=== PATIENT | male | born 1980 | race African-American/Black ===

== ENCOUNTER 2025-07-04 14:47 | Emergency (ER) | payer OTHER, SELFPAY ==
[2025-07-04] VITALS (11 sets, daily range): BP systolic 110–196; BP diastolic 67–138; PULSE 68–118; RESP 11–24; TEMP 36.8; O2SAT 96–100; BMI 39.9
--- NOTE | 2025-07-04 15:10 | RAD_ITS ---
PROCEDURE: TIBIA FIBULA 2 VIEWS 07/04/2025 REASON FOR EXAM: INJURY TECHNIQUE: Procedure Code: RADTF Modality: DX Procedure: TIBIA FIBULA 2 VIEWS Laterality: Right COMPARISON: None FINDINGS: Bones: Spiral fracture of the proximal fibular diaphysis with lateral displacement. Spiral fracture of the distal tibial diaphysis with mild lateral angulation and displacement of approximately 7 mm. Joints: Normal alignment at the knee and ankle. Soft tissues: Soft tissues are unremarkable. Other: No foreign body. RAD/Tibia & Fibula 2 Views IMPRESSION: Fractures of the fibula and tibia as above. Reading Location: [id number]
--- NOTE | 2025-07-04 15:46 | ED.VIS.FALL ---
HPI HPI - Fall History of Present Illness Chief Complaint: Fall Informant: patient and EMS Narrative Narrative: Patient is a 44-year-old male with no significant PMHx presenting to the ED with a leg injury sustained from a fall. - Reports slipping while stepping out of a truck, resulting in a fall where his leg was twisted, fell onto back. [place] multiple popping sounds in his leg during the fall; denies back pain. - Describes the fall as rapid and uncontrollable, stating, I couldn't stop it, it was just like so fast. - Upon lifting his leg, he suspected it was broken. - Denies numbness except for a sensation where ice was applied. - Last oral intake was a [employer] a few hours ago; prior to that, ate around [id number]. - Recently started working at [employer]; planning to return to law enforcement. [facility] Medical History (Updated 07/04/25 @ 15:[address] Pito Urias MD) Tibia fracture Medical History no medical history no medical history Home Medications ?Medication ?Instructions ?Recorded ?Last Taken ?Type oxycodone-acetaminophen 5 mg-325 1 tab PO Q4H PRN PRN Pain 3 days 07/04/25 Unknown Rx mg tablet #15 TABLETS Allergy/AdvReac Type Severity Reaction Status Date / Time No Known Allergies Allergy Verified 07/04/25 14:50 Social History Smoking Status: Current every day smoker tobacco type: e-cigarettes ROS ROS ED Constitutional Constitutional ED: Denies chills or fever(s) Eyes Eyes: Denies change in vision Cardiovascular Cardiovascular: Denies chest pain Gastrointestinal Gastrointestinal: Denies abdominal pain Musculoskeletal Musculoskeletal: Reports extremity pain; Denies back pain or neck pain Integumentary Denies Abrasions, rash or wounds Neurologic Neurologic: Denies headache(s), paresthesias or weakness EXAM Physical Exam Const Vital Signs: 07/04/25 14:48 07/04/25 15:42 07/04/25 16:13 Temperature 98.2 F Temperature Source Oral Pulse Rate 118 H 73 Pulse Rate [1 (Initial Baseline)] Pulse Rate [2] Pulse Rate [3] Respiratory Rate 16 Respiratory Rate [1 (Initial Baseline)] Respiratory Rate [2] Respiratory Rate [3] Respiratory Effort Normal Non-Labored Respiratory Depth Normal Respiratory Pattern Normal Blood Pressure 110/99 H 136/80 H Blood Pressure [1 (Initial Baseline)] Blood Pressure [3] Blood Pressure Mean 102 98 Baseline BP Pulse Ox 100 Oxygen Delivery Method Room Air Room Air Oxygen Delivery Method [1 (Initial Baseline)] Oxygen Delivery Method [2] Oxygen Delivery Method [3] Oxygen Flow Rate (L/min) Oxygen Flow Rate (L/min) [2] Oxygen Flow Rate (L/min) [3] EtCo2 - Document during CPR and with ROSC EtCo2 - Document during CPR and with ROSC [1 (Initial Baseline)] EtCo2 - Document during CPR and with ROSC [2] EtCo2 - Document during CPR and with ROSC [3] 07/04/25 16:30 07/04/25 16:30 07/04/25 16:31 Temperature Temperature Source Pulse Rate 69 Pulse Rate [1 (Initial Baseline)] Pulse Rate [2] Pulse Rate [3] Respiratory Rate 16 Respiratory Rate [1 (Initial Baseline)] Respiratory Rate [2] Respiratory Rate [3] Respiratory Effort Respiratory Depth Respiratory Pattern Blood Pressure 136/80 H Blood Pressure [1 (Initial Baseline)] Blood Pressure [3] Blood Pressure Mean Baseline BP 136/80 Pulse Ox 100 100 Oxygen Delivery Method Room Air Room Air Oxygen Delivery Method [1 (Initial Baseline)] Oxygen Delivery Method [2] Oxygen Delivery Method [3] Oxygen Flow Rate (L/min) Oxygen Flow Rate (L/min) [2] Oxygen Flow Rate (L/min) [3] EtCo2 - Document during CPR and with ROSC 39 EtCo2 - Document during CPR and with ROSC [1 (Initial Baseline)] EtCo2 - Document during CPR and with ROSC [2] EtCo2 - Document during CPR and with ROSC [3] 07/04/25 16:35 07/04/25 16:51 07/04/25 16:56 Temperature Temperature Source Pulse Rate 69 70 Pulse Rate [1 (Initial Baseline)] 72 Pulse Rate [2] 84 Pulse Rate [3] 90 Respiratory Rate 11 L 16 Respiratory Rate [1 (Initial Baseline)] 16 Respiratory Rate [2] 17 Respiratory Rate [3] 24 H Respiratory Effort Respiratory Depth Respiratory Pattern Blood Pressure 171/83 H 178/108 H Blood Pressure [1 (Initial Baseline)] 136/67 H Blood Pressure [3] 196/69 H Blood Pressure Mean Baseline BP Pulse Ox 100 100 Oxygen Delivery Method Nasal Cannula Nasal Cannula Oxygen Delivery Method [1 (Initial Baseline)] Nasal Cannula Oxygen Delivery Method [2] Nasal Cannula Oxygen Delivery Method [3] Nasal Cannula Oxygen Flow Rate (L/min) 2 Oxygen Flow Rate (L/min) [2] 2 Oxygen Flow Rate (L/min) [3] 2 EtCo2 - Document during CPR and with ROSC 45 37 EtCo2 - Document during CPR and with ROSC [1 (Initial Baseline)] 36 EtCo2 - Document during CPR and with ROSC [2] 39 EtCo2 - Document during CPR and with ROSC [3] 39 07/04/25 17:00 07/04/25 17:01 Temperature Temperature Source Pulse Rate 72 78 Pulse Rate [1 (Initial Baseline)] Pulse Rate [2] Pulse Rate [3] Respiratory Rate 14 16 Respiratory Rate [1 (Initial Baseline)] Respiratory Rate [2] Respiratory Rate [3] Respiratory Effort Respiratory Depth Respiratory Pattern Blood Pressure 178/108 H 178/138 H Blood Pressure [1 (Initial Baseline)] Blood Pressure [3] Blood Pressure Mean 131 Baseline BP Pulse Ox 100 100 Oxygen Delivery Method Room Air Oxygen Delivery Method [1 (Initial Baseline)] Oxygen Delivery Method [2] Oxygen Delivery Method [3] Oxygen Flow Rate (L/min) Oxygen Flow Rate (L/min) [2] Oxygen Flow Rate (L/min) [3] EtCo2 - Document during CPR and with ROSC 36 EtCo2 - Document during CPR and with ROSC [1 (Initial Baseline)] EtCo2 - Document during CPR and with ROSC [2] EtCo2 - Document during CPR and with ROSC [3] Positive well nourished and well developed General Appearance ED: well developed and NAD HEENT Reports normocephalic atraumatic Eyes PERRL and EOMs intact bilaterally Neck full ROM and supple Chest Wall inspection of chest normal and palpation of chest normal Resp normal respiratory effort and clear to auscultation bilaterally Cardio regular rate, regular rhythm and no murmurs Rate: tachycardic GI non-tender and non-distended Palpation: soft Back/Spine normal ROM and normal to inspection Extremity Extremity Narrative: Deformity distal right lower leg. There is mild tenting but it appears to be over a relatively large area as opposed to a sharp peak. The skin is intact. The foot is in external rotation compared with the knee. Tenderness at the lateral aspect of the proximal lower leg as well but not at the knee or the thigh. There is a 2+/4 dorsalis pedis pulse on the right. Left lower extremity and both upper extremities move fully without limitation or pain. Neuro oriented x3, no focal motor deficits and no sensory deficits noted Sensorium / Orientation: alert Psych mental status grossly normal and thought process normal Skin no wounds Rashes: no rashes MDM MDM MDM Narrative Medical decision making narrative: A two-view x-ray series of the right tibia and fibula shows displaced fractures of the distal tibial shaft, proximal to the malleoli, and the proximal fibular shaft, distal to the fibular head. This finding is consistent with the patient?s deformity and pain. After informed written consent was obtained, the patient was sedated, the fracture was reduced, and he was splinted (see the procedure note). I discussed the plan with Dr. Naylor, who agreed that the patient will require outpatient management. It will be arranged for the patient to be admitted in a couple of days or early next week as an outpatient, if he wishes to follow up in the office before the weekend. We provided the patient with crutches and advised that he remain [id number]. He was able to ambulate with the crutches, and his pain is relatively controlled. He was offered admission but prefers to continue as an outpatient. Therefore, he was given [id number] instructions for the right lower extremity, reasons to return, and a prescription for analgesics. He was also given appropriate work restrictions, as this is a work-related injury. Radiography Diagnostic Testing: Clinical Impression(s) from Imaging Studies Tibia/Fibula X-Ray 07/04/25 15:10 IMPRESSION: Fractures of the fibula and tibia as above. Reading Location: [facility] Tibia/Fibula X-Ray 07/04/25 17:12 IMPRESSION: Displaced fractures of the tibial and fibular shafts, as described above. Reading Location: [id number] Management Discussion w/another healthcare provider: Public Relations Consultant (Martin Naylor) Procedures Lower Extremity Splints Lower Extremity Splint: Orthoglass (Long-leg posterior with sugar-tong; neurovascularly intact distally after placement tolerated well no complications under sedation after written consent) Splint Fabrication: Fabricated Location: Right Procedural Sedation 1 (Initial Baseline): Consent Signed: Yes Any Problems With Anesthesia: No Sedation medication: Etomidate Dose: 10 Route: IV Total Moderate Sedation Units: 9 Maliampati Score: Class II ASA Classification: I Comment:: On monitor with prophylactic nasal cannula oxygenation and IV fluids, end-tidal CO2 monitoring, airway equipment at the bedside. Tolerated well with no complications. Other Procedures Procedure(s): Close reduction right lower leg displaced fractures: After informed consent and timeout, patient was sedated and the foot was manually distracted while internally rotated for reduction of the distal tibia shaft fracture. Deformity resolved, neurovascular intact distally after reduction, and splinted see above. Discharge Plan Triage Chief Complaint: Fall ED Provider: Pito Urias Dx/Rx/DC Orders Clinical Impression: Traumatic closed displaced fracture of shaft of right tibia and fibula, Fall due to slipping on ice or snow Instructions: Using Crutches: [id number], ED Leg Fracture, ED Fiberglass Splint Care Prescriptions: New oxycodone-acetaminophen 5-325 mg tablet 1 tab PO Q4H PRN PRN (Reason: Pain) 3 Days Qty: 15 0RF Stand Alone Forms: Work Status Form Primary Care Provider: [facility],[place] Referrals: Manoj Naylor MD [Med Staff - Active Staff, Orthopedics] - As soon as possible Print Language: Italian Disposition Disposition: Home, Self Care
--- NOTE | 2025-07-04 15:51 | CON.PCM.OR_ITS ---
HPI Consult Data Date of Consult: 07/04/25 HPI Narrative HPI Narrative: KILO DYSON, is a 44 M who presents with a tib fib fracture, twisted on ice. [facility] Medical History (Updated 07/04/25 @ 15:52 by Manoj Naylor MD) Tibia fracture Allergy/AdvReac Type Severity Reaction Status Date / Time No Known Allergies Allergy Verified 07/04/25 14:50 Vital Signs Vital Signs Vital Signs: 07/04/25 14:48 07/04/25 15:42 Temperature 98.2 F Temperature Source Oral Pulse Rate 118 H Respiratory Rate 16 Respiratory Effort Normal Non-Labored Respiratory Depth Normal Respiratory Pattern Normal Blood Pressure 110/99 H Blood Pressure Mean 102 Pulse Ox 100 Oxygen Delivery Method Room Air Room Air Weight Weight: 311 lb 4.683 oz Body Mass Index (BMI) 39.9 Imaging Radiology Impression Tibia/Fibula X-Ray 07/04/25 15:10 IMPRESSION: Fractures of the fibula and tibia as above. Reading Location: [id number] Assessment & Plan Assessment/Plan (1) Tibia fracture: PLAN: 44 M with tib fib fracture, extra articular. no signs of CS per Dr Rory SHELTON to splint and make NWB. Prefer for him to be admitted and fix with IM delmis in next few days as able per OR, but also fine if he would rather get splinted and FU on Wednesday to arrange surgery next week.
[2025-07-04] MEDS: fentaNYL 100 MCG/2 ML Ampul 50 MCG IV (16:05)
[2025-07-04] MEDS: 0.9% Normal Saline (1000mL) 1,000 ML 200 ML IV (16:06)
--- NOTE | 2025-07-04 16:53 | ED.RN ---
For workers comp, pt. is required to have a drug test. There is no one tongue binder that can come to the ER at this time. Pt. will have to f/u with [facility] to get the testing
--- NOTE | 2025-07-04 17:12 | RAD_ITS ---
PROCEDURE: RIGHT TIBIA FIBULA 2 VIEWS 07/04/2025 REASON FOR EXAM: POSTREDUCTION TECHNIQUE: Procedure Code: RADTF Modality: DX Procedure: TIBIA FIBULA 2 VIEWS COMPARISON: Earlier same day FINDINGS: Status post closed reduction and splinting. Oblique fracture of the proximal fibular shaft remains with full shaft width anterolateral displacement and overriding fragments. Comminuted fracture of the distal tibial diaphysis remains with moderate roughly full shaft width dorsal displacement of the distal fragment. RAD/Tibia & Fibula 2 Views IMPRESSION: Displaced fractures of the tibial and fibular shafts, as described above. Reading Location: [id number]
--- NOTE | 2025-07-04 17:48 | ED.RN ---
This RN spoke with Kavita from [employer]. She will be in to do drug screen
== END 2025-07-04 18:41 | disposition home or self-care (01) ==
PROVIDERS: Emergency Provider Emergency Medicine; Visit Provider Emergency Medicine
DX: S82.431A Displaced oblique fracture of shaft of right fibula, initial encounter for closed fracture (principal); S82.251A Displaced comminuted fracture of shaft of right tibia, initial encounter for closed fracture; F17.290 Nicotine dependence, other tobacco product, uncomplicated
CPT/HCPCS: 27788; 73590; 96361; 96374; 96375; 99285; A4216; J2405